=== PATIENT | male | born 1980 | race American Indian/Alaskan Native ===

== ENCOUNTER 2020-11-11 11:36 | Emergency (ER) | payer OTHER ==
[2020-11-11 11:59] VITALS: BP 136/91
[2020-11-11] MEDS ORDERED: methylPREDNISolone ACETATE 80 MG/1 ML INJ IM ONE (12:03)
[2020-11-11] MEDS ORDERED: CYCLOBENZAPRINE 10 MG TAB PO ONE (12:03)
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
== END 2020-11-11 13:05 | disposition home or self-care (01) ==
LOC: ED 11:36
DX: M79.18 Myalgia, other site (principal); F17.200 Nicotine dependence, unspecified, uncomplicated; Z79.899 Other long term (current) drug therapy; V49.49XA Driver injured in collision with other motor vehicles in traffic accident, initial encounter; Y92.410 Unspecified street and highway as the place of occurrence of the external cause; Y93.89 Activity, other specified; Y99.8 Other external cause status
CPT/HCPCS: 96372; 99282